=== PATIENT | female | born 1930 | race Caucasian/White ===

== ENCOUNTER 2019-04-26 06:45 | Emergency (ER) | payer MEDICARE, OTHER ==
[~2019-04-26] VITALS: Ht 165.1 cm; Wt 54.5 kg
[~2019-04-26 06:45] MED LIST: CEFTIN250 MG PO; LISINOPRIL2.5 MG PO; PREDNISONE20 MG PO; PROTONIX40 MG PO
[2019-04-26 06:52] VITALS: Ht 165.1 cm; Wt 54.5 kg
[2019-04-26] MEDS ORDERED: LISINOPRIL10 MG PO (07:17)
[2019-04-26 08:29] VITALS: BP 190/88
== END 2019-04-26 08:29 | disposition home or self-care (01) ==
LOC: D.ER 06:45
DX: I10 Essential (primary) hypertension (principal)

== ENCOUNTER → 2020-12-30 09:10 | Day surgery (SDC) | payer MEDICARE, OTHER ==
--- NOTE | 2020-12-27 14:46 | NUR ---
PT APPOINTMENT CONFIRMED
--- NOTE | ~2020-12-30 | HEMODYNAMI ---
PATIENT:SATHISH COOK [place] MEDICAL RECORD: [id number] : 34 LOCATION:[facility] ADMISSION DATE: 12/30/20 Generatedon:110:16 Patient name: SATHISH COOK Patient #: [id number] SSN: : [id number] Date of study: 12/30/2020 Page: Of Hemodynamic Procedure Report Patient Data Patient Demographics First Name: SATHISH Gender: Female Last Name: JOEY : 1930 [facility] Initial: LORETTA Age: 89 year(s) Patient #: [id number] Race: Unknown Additional ID: [id number] Contact details Address: [address] [address] State: [place] City: [place] Zip code: [address] Past Medical History Allergies Allergen Reaction Date Comments Reported Other allergy 12/30/2020 sulfatrim Admission Admission Data Admission Date: 12/30/2020 Admission Time: 9:10 Procedure Procedure Types Cath Procedure Peripheral Cath Diagnostic Procedure Miscellaneous Aspiration/Injection (Joint) Procedure Description Procedure Date Procedure Date: 12/30/2020 Procedure Start Time: 10:03 Procedure Staff Name Function Go Mann MD Performing Physician Latanya Hernandez RT Roller Inspector And Mender Con Phan RT Scrub Procedure Data Cath Procedure Fluoroscopy Diagnostic fluoroscopy Total fluoroscopy Time: 0.4 time: 0.4 min min Diagnostic fluoroscopy Total fluoroscopy dose: 7 dose: 7 mGy mGy Contrast Material Contrast Material Type Amount (ml) Isovue 200 5 Hemodynamics Rest Pre Cath Intra NCS Post Cath Procedure Log Time Note 9:43:13 SAFE-T PLUS MYELOGRAM TRAY opened to sterile field. 9:58:14 Time tracking: Regular hours (M-F 7:00 - 5:00) 9:58:29 Patient received from Outpatients to IR Alert and oriented. Tansferred to table in Supine position. 9:58:33 Family in waiting room. 9:58:51 Patient allergic to Other allergysulfa 9:59:58 Right Hip was prepped with betadine and draped in sterile fashion. 10:00:02 - 10:02:14 Physician arrived 10:02:15 --------ALL STOP TIME OUT------ 10:02:16 Final Timeout: patient, procedure, and site verified with staff and physician. All members of the team are in agreement. 10:03:09 Procedure started. 10:03:09 Full Disclosure recording started 10:03:19 Local anesthetic to Right Hip with Lidocaine 1% by Go Mann MD.INITIAL ACCESS ONLY 10:12:55 Procedure ended.(Physican Out) 10:13:13 Fluoroscopy time 00.40 minutes. 10:13:18 Fluoroscopy dose: 7 mGy 10:13:18 Flurop Dose total: 7 10:14:13 Dose Area Product 7 mGy/cm. 10:14:28 Contrast amount:Isovue 200 5ml. 10:15:10 Procedure and supply charges have been captured, reviewed, submitted an d are correct. 10:15:53 Patient transfered to Other with Ambulatory. Device Usage Item Name Manufacture Quantity Catalog Hospital Part Current Minimal Lot# / Number Charge Number Stock Stock Serial# Code SAFE-T [employer] 1 [id number] PLUS MYELOGRAM TRAY Signature Audit [place] Stage Time Signature Unsigned Intra-Procedure 12/30/2020 Latanya Hernandez 10:16:07 AM RT(R) [facility] [address] [place] [address]
[~2020-12-30 09:10] MED LIST changes: +COREG12.5 MG PO; +KEFLEX500 MG PO; +LISINOPRIL10 MG PO; +MACROBID100 MG PO
== END | disposition home or self-care (01) ==
LOC: D.RAD 09:10
PROVIDERS: ATTEND Clinical Nurse Specialist Family Health
DX: M16.11 Unilateral primary osteoarthritis, right hip (principal)